=== PATIENT | female | born 1950 | race Caucasian/White ===

== ENCOUNTER → 2018-01-09 17:33 | Outpatient (REF) | payer MEDICARE, OTHER, SELFPAY | LOC: LAB 17:33 | PROVIDERS: Visit Provider Dermatology MOHS-Micrographic Surgery | DX: L53.8 Other specified erythematous conditions (principal); L91.0 Hypertrophic scar; Z48.02 Encounter for removal of sutures | CPT/HCPCS: 87070; 87075; 87077; 87147; 87186; 87205 ==

== ENCOUNTER → 2018-02-20 16:16 | Outpatient (REF) | payer MEDICARE, OTHER, SELFPAY | LOC: LAB 16:16 | PROVIDERS: Visit Provider Physician Assistant | DX: Z48.817 Encounter for surgical aftercare following surgery on the skin and subcutaneous tissue (principal); Z87.2 Personal history of diseases of the skin and subcutaneous tissue; Z85.828 Personal history of other malignant neoplasm of skin; L81.4 Other melanin hyperpigmentation; Z71.89 Other specified counseling | CPT/HCPCS: 87070; 87075; 87077; 87147; 87186; 87205 ==